=== PATIENT | female | born 1945 | race Caucasian/White ===

== ENCOUNTER → 2023-04-23 13:05 | Outpatient (REF) | payer OTHER, SELFPAY ==
[2023-04-23 13:20] LABS: % Basophils 0.8 % (0-2); % Eosinophils 2.5 % (0-6); % Immature Granulocytes 0.2 % (0-0.5); % Lymphocytes 32.2 % (20.5-51.1); % Monocytes 8.7 % (1.7-9.3); % Neutrophils 55.6 % (42.2-75.2); Absolute Basophils 0.1 10^3/uL (0-0.2); Absolute Eosinophils 0.2 10^3/uL (0-0.7); Absolute Lymphocytes 1.9 10^3/uL (1.2-3.4); Absolute Monocytes 0.5 10^3/uL (0.1-0.6); Absolute Neutrophils 3.3 10^3/uL (1.4-6.5); Hematocrit 44.3 % (37.0-47.0); Mean Corp Hgb Conc. 33.9 g/dL (33.0-37.0); Mean Corpuscular Hgb 30.4 pg (27.0-31.0); Mean Corpuscular Volume 89.7 fL (81.0-99.0); Mean Platelet Volume 9.7 fL (7.4-10.4); Platelet Count 180 10^3/uL (130-400); Red Blood Cell Count 4.94 10^6/uL (4.20-5.40)
[2023-04-23 15:10] LABS: ALT (SGPT) 17 U/L (0-35); AST (SGOT) 23 U/L (14-36); Albumin 4.4 g/dl (3.5-5.0); Alkaline Phosphatase 76 U/L (38-126); Blood Urea Nitrogen 20 mg/dl (7-17); Calcium 9.4 mg/dl (8.4-10.2); Carbon Dioxide 25 mmol/L (22-30); Chloride 107 mmol/L (98-107); Glucose 88 mg/dl (70-99); Potassium 4.3 mmol/L (3.5-5.1); Sodium 137 mmol/L (135-145); Total Bilirubin 0.9 mg/dl (0.2-1.3); Total Protein 6.7 g/dl (6.3-8.2); eGFR 38.27
[2023-04-25 00:27] LABS: IgA 87 mg/dl (70-400); IgG 807 mg/dl (700-1600); IgM 84 mg/dl (40-230)
[2023-04-26 23:03] LABS: Albumin 4.34 g/dL (3.75-5.01); Alpha 1 Globulin 0.22 g/dL (0.19-0.46); Alpha 2 Globulin 0.65 g/dL (0.48-1.05); Free Kappa Light Chains,Quant 35.44 mg/L (3.30-19.40); Free Lambda Light Chains,Quant 13.31 mg/L (5.71-26.30); IgA 94 mg/dL (68-408); IgG 754 mg/dL (768-1632); IgM 77 mg/dL (35-263); Immunofixation Electrophoresis IFE Done; Kappa/Lambda Fr Light Ratio 2.66 (0.26-1.65); Total Protein-Electrophoresis 6.6 g/dL (6.3-8.2)
== END ==
LOC: OIDL 13:05
PROVIDERS: ATTENDING PHYSICIAN Internal Medicine Hematology & Oncology; FAMILY PHYSICIAN Family Medicine
DX: D64.9 Anemia, unspecified (principal)
CPT/HCPCS: 36415; 80053; 82784; 83521; 84155; 84165; 85025; 86334

== ENCOUNTER → 2023-09-18 13:39 | Outpatient (REF) | payer OTHER, SELFPAY | LOC: WDC 13:39 | PROVIDERS: ATTENDING PHYSICIAN Family Medicine | DX: Z12.31 Encounter for screening mammogram for malignant neoplasm of breast (principal) | CPT/HCPCS: 77063; 77067 ==

== ENCOUNTER → 2023-10-02 09:11 | Outpatient (REF) | payer OTHER, SELFPAY | LOC: WDC 09:11 | PROVIDERS: ATTENDING PHYSICIAN Family Medicine | DX: R92.8 Other abnormal and inconclusive findings on diagnostic imaging of breast (principal) | CPT/HCPCS: 76642 ==

== ENCOUNTER → 2024-05-19 13:40 | Outpatient (REF) | payer OTHER, SELFPAY ==
[2024-05-19 14:06] LABS: % Basophils 0.5 % (0-2); % Eosinophils 2.1 % (0-6); % Immature Granulocytes 0.3 % (0-0.5); % Lymphocytes 22.2 % (20.5-51.1); % Monocytes 7.6 % (1.7-9.3); % Neutrophils 67.3 % (42.2-75.2); Absolute Eosinophils 0.2 10^3/uL (0-0.7); Absolute Lymphocytes 1.7 10^3/uL (1.2-3.4); Absolute Monocytes 0.6 10^3/uL (0.1-0.6); Absolute Neutrophils 5.1 10^3/uL (1.4-6.5); Hematocrit 43.2 % (37.0-47.0); Hemoglobin 14.5 g/dL (12.0-16.0); Mean Corp Hgb Conc. 33.6 g/dL (33.0-37.0); Mean Corpuscular Hgb 29.8 pg (27.0-31.0); Mean Corpuscular Volume 88.9 fL (81.0-99.0); Mean Platelet Volume 10.1 fL (7.4-10.4); Platelet Count 216 10^3/uL (130-400); Red Blood Cell Count 4.86 10^6/uL (4.20-5.40); White Blood Cell Count 7.5 10^3/uL (4.8-10.8)
[2024-05-19 16:00] LABS: ALT (SGPT) 17 U/L (0-35); AST (SGOT) 18 U/L (14-36); Albumin 4.2 g/dl (3.5-5.0); Alkaline Phosphatase 83 U/L (38-126); Blood Urea Nitrogen 21 mg/dl (7-17); Calcium 9.7 mg/dl (8.4-10.2); Carbon Dioxide 25 mmol/L (22-30); Chloride 105 mmol/L (98-107); Glucose 159 mg/dl (70-99); Potassium 4.6 mmol/L (3.5-5.1); Sodium 138 mmol/L (135-145); Total Bilirubin 0.7 mg/dl (0.2-1.3); Total Protein 6.8 g/dl (6.3-8.2); eGFR 38.03
[2024-05-20 23:42] LABS: IgA 102 mg/dl (70-400); IgG 891 mg/dl (700-1600); IgM 123 mg/dl (40-230)
[2024-05-22 06:08] LABS: Beta-2-Microglobulin 3.6 mg/L (<=3.0)
== END ==
LOC: OIDL 13:40
PROVIDERS: ATTENDING PHYSICIAN Internal Medicine Hematology & Oncology
DX: D64.9 Anemia, unspecified (principal)
CPT/HCPCS: 36415; 80053; 82232; 82784; 83521; 84155; 84165; 85025; 86334

== ENCOUNTER → 2024-06-04 12:23 | Outpatient (REF) | payer OTHER, SELFPAY ==
[2024-06-04 12:42] VITALS: BP 222/113; BP_SYST 85
[2024-06-04 13:43] VITALS: BP 213/113
== END ==
LOC: RADI 12:23
PROVIDERS: ATTENDING PHYSICIAN Internal Medicine Hematology & Oncology; FAMILY PHYSICIAN Family Medicine
DX: Z45.2 Encounter for adjustment and management of vascular access device (principal); C88.00 Waldenstrom macroglobulinemia not having achieved remission
CPT/HCPCS: 36590; 77001

== ENCOUNTER → 2024-10-13 11:41 | Outpatient (REF) | payer OTHER, SELFPAY | LOC: WDC 11:41 | PROVIDERS: ATTENDING PHYSICIAN Family Medicine | DX: Z12.31 Encounter for screening mammogram for malignant neoplasm of breast (principal) | CPT/HCPCS: 77063; 77067 ==

== ENCOUNTER → 2024-10-20 09:11 | Outpatient (REF) | payer OTHER, SELFPAY | LOC: WDC 09:11 | PROVIDERS: ATTENDING PHYSICIAN Family Medicine | DX: R92.8 Other abnormal and inconclusive findings on diagnostic imaging of breast (principal) | CPT/HCPCS: 76642 ==

== ENCOUNTER → 2024-10-29 08:25 | Outpatient (REF) | payer OTHER, SELFPAY ==
--- NOTE | 2024-10-29 14:32 | OID.BR.INTR ---
[facility] Breast Navigator - Initial
- -
Date of Contact: 10/29/24
Met with patient. Patient given written information on navigator service available at [facility]. Will follow up as needed per protocol.
== END ==
LOC: WDC 08:25
PROVIDERS: ATTENDING PHYSICIAN Family Medicine
DX: N63.21 Unspecified lump in the left breast, upper outer quadrant (principal)
CPT/HCPCS: 19083; 88305; 88341; 88342; A4648

== ENCOUNTER → 2024-11-20 13:47 | Outpatient (REF) | payer OTHER, SELFPAY | LOC: HWRAD 13:47 | PROVIDERS: ATTENDING PHYSICIAN Surgery; FAMILY PHYSICIAN Family Medicine | DX: M79.671 Pain in right foot (principal); T14.8XXA Other injury of unspecified body region, initial encounter | CPT/HCPCS: 73620 ==

== ENCOUNTER → 2025-01-06 09:40 | Outpatient (REF) | payer OTHER, SELFPAY | LOC: WDC 09:40 | PROVIDERS: ATTENDING PHYSICIAN Surgery | DX: C50.412 Malignant neoplasm of upper-outer quadrant of left female breast (principal) | CPT/HCPCS: 19285; A4648 ==

== ENCOUNTER 2025-01-08 06:06 | Day surgery (SDC) | payer OTHER, SELFPAY ==
[2025-01-01 11:04] LABS: Hematocrit 44.2 % (37.0-47.0); Hemoglobin 14.1 g/dL (12.0-16.0); Mean Corp Hgb Conc. 31.9 g/dL (33.0-37.0); Mean Corpuscular Volume 89.3 fL (81.0-99.0); Platelet Count 216 10^3/uL (130-400); Red Cell Dist. Width 13.5 % (11.5-14.5)
[2025-01-01 12:01] LABS: Prealbumin (Transthyretin) 30.9 mg/dl (17.6-36.0)
[2025-01-01 12:07] LABS: ALT (SGPT) 17 U/L (0-35); AST (SGOT) 19 U/L (14-36); Albumin 4.6 g/dl (3.5-5.0); Alkaline Phosphatase 72 U/L (38-126); Blood Urea Nitrogen 22 mg/dl (7-17); Calcium 9.8 mg/dl (8.4-10.2); Carbon Dioxide 26 mmol/L (22-30); Chloride 107 mmol/L (98-107); Glucose 100 mg/dl (70-99); Potassium 4.8 mmol/L (3.5-5.1); Sodium 141 mmol/L (135-145); Total Protein 7.1 g/dl (6.3-8.2); eGFR 41.31
[2025-01-01 12:13] LABS: Vitamin D, 25-OH*** 15.6 ng/mL (30-80)
[2025-01-01 14:03] VITALS: BMI 29.8
[2025-01-08 07:03] VITALS: BP 225/132; BMI 29.8
[2025-01-08] MEDS: TYLENOL 1000 MG PO (07:11)
[2025-01-08] MEDS: LOVENOX 40 MG SC (07:11)
[2025-01-08] MEDS: NORMOSOL-R/PLASMALYTE-A 1000 IV (07:12)
[2025-01-08] MEDS: VANCOCIN 530 MG IV (07:12)
[2025-01-08 07:15] VITALS: BP 230/110
[2025-01-08 08:39] VITALS: BP 154/92
[2025-01-08 08:45] VITALS: BP 168/108
--- NOTE | 2025-01-08 08:57 | W.IMMPOSTOP ---
Surgical Immed Post Op Note
-
Primary Surgeon: Mateo
Assisting Surgeon: None
Pre-op Diagnosis: Left breast ca
Post-op Diagnosis: Same
Procedure Performed: Left localized lumpectomy
Anesthesia Type: TIVA
Specimen / Cultures: Left lumpectomy and margins
Estimated Blood Loss: 4cc
Complications: None
Operative Findings: Clip, reflector and mass in specimen
--- NOTE | 2025-01-08 08:58 | OR.RPT ---
Operative Report
Operative Report
Date of procedure: 01/08/2025
Surgeon: Mateo
Preoperative diagnosis left breast carcinoma
Postoperative diagnosis: Left breast carcinoma
Procedure left localized lumpectomy
The patient is an 79-year-old female who presented with image detected early stage favorable left breast carcinoma and presents for breast conservation surgery. She met criteria to forego axillary sampling. On the day prior to the procedure she
presented to the [place] [facility] where Paula reflector was placed at the tumor site. She presented to the same-day surgical services on the day of the procedure and was prepped. She verified site and procedure. DVT and antibiotic
prophylaxis were provided.
She was taken to the operating room and in the supine position intravenous sedation was delivered. Left breast was prepped and draped in the usual sterile fashion. An appropriate timeout was performed by all staff members. All tissues were
anesthetized with 1% lidocaine plain and a curvilinear incision was made overlying the area of the Paula inside sales signal. Skin flaps were elevated with the cautery and dissection was carried down to the mass which was widely excised. Time out of body
was noted and the specimen was oriented for the pathologist. There was a strong Paula signal within it and specimen radiography confirmed the presence of mass, clip, and Paula reflector within it.
Additional margins were harvested from the posterior, medial, superior, lateral, inferior, and anterior dimensions. These were oriented as well and sent under separate cover. Hemostasis was maintained with the cautery. Hemoclips were placed in
the resection cavity and Marcaine 0.5% plain was instilled into all tissues. This wound was closed using simple interrupted 3-0 plain on deep intermediate and subcutaneous tissue and a running subcuticular 4-0 Monocryl and skin. Some simple
interrupted 4-0 Monocryl's were passed for extra support. Surgical glue and a sterile compressive dressing were applied. All sponge needle and instrument counts were correct and the patient was transferred to the recovery room in stable condition
([id number])
[2025-01-08 09:00] VITALS: BP 165/93
[2025-01-08 09:14] VITALS: BP 177/93
== END 2025-01-08 09:30 | disposition home or self-care (01) ==
LOC: SDS 06:06
PROVIDERS: ATTENDING PHYSICIAN Surgery; FAMILY PHYSICIAN Family Medicine
DX: C50.912 Malignant neoplasm of unspecified site of left female breast (principal)
CPT/HCPCS: 19301; 36415; 76098; 80053; 82306; 84134; 85027; 88305; 88307; 88341; 88342; 93005; L8000